=== PATIENT | male | born 1950 | race Caucasian/White ===

== ENCOUNTER 2023-05-26 12:57 | Outpatient (REF) | payer MEDICARE, OTHER, SELFPAY ==
--- NOTE | 2023-05-26 13:15 | EEG_ITS ---
FINDINGS: Waking background activity consists of a low voltage posterior 10 hertz alpha frequency intermixed anteriorly with low-voltage fast frequencies. Drowsiness is characterized by diffuse theta slowing. During sleep, symmetrical frontocentral sleep spindles and vertex sharp transients develop over both hemispheres. Arousals are unremarkable. The patient remains asymptomatic. No focal, lateralizing, or paroxysmal discharges are seen. IMPRESSION: This 24-hour ambulatory EEG is within normal limits. MD SARITA Case/VICKIE / [id number]
== END 2023-05-26 12:58 | disposition home or self-care (01) ==
LOC: HO.NEURO 12:57
PROVIDERS: PCP Internal Medicine; Visit Provider Psychiatry & Neurology Neurology
DX: G40.909 Epilepsy, unspecified, not intractable, without status epilepticus (principal)
CPT/HCPCS: 95708